=== PATIENT | female | born 1975 | race Caucasian/White ===

== ENCOUNTER → 2016-07-29 | Outpatient (CLI) | payer OTHER ==
[~2016-07-29] MED LIST: BUDESUS; CLRUNK PO; MTRUNK PO; PRENTAB26 PO; SNG10 PO; TYLUNK PO
--- NOTE | 2016-07-29 16:46 | MAMMOGRAPHY REPORT ---
BILATERAL FIRST EVER DIGITAL SCREENING MAMMOGRAM TOMOSYNTHESIS WITH CAD: 07/29/2016 CLINICAL HISTORY: Routine screening. Baseline exam. TECHNIQUE: Breast tomosynthesis in addition to standard 2D mammography was performed. Current study was also evaluated with a Computer Aided Detection (CAD) system. COMPARISON: No prior exams were available for comparison. BREAST COMPOSITION: The tissue of both breasts is heterogeneously dense, which may obscure small ma sses. FINDINGS: There is a possible round 4 mm mass seen within the left lateral breast, only clearly see n on the cc view. Recommend spot compression tomosynthesis views and possible breast ultrasound for further evaluation. This may represent a lymph node. The remainder of both breasts are negative, without suspicious masses, calcifications, or areas of a rchitectural distortion noted. IMPRESSION: ACR BI-RADS CATEGORY 0: INCOMPLETE EVALUATION: NEED ADDITIONAL IMAGING EVALUATION Possible left lateral breast mass, for which additional imaging evaluation is recommended. The vivian ent will be called to schedule an appointment. Approximately 10% of breast cancers are not detected with mammography. A negative mammographic repor t should not delay biopsy if a clinically suggestive mass is present. Yanelis Veloz M.D. ah/:07/29/2016 16:35:33 Portrait Studio Photographer: Mona HANCOCK(Tiesha)([place])([place]), [facility] [address] letter sent: Addl Imaging 0 BI-RADS Code: ACR BI-RADS Category 0: Incomplete Evaluation: Need Additional Imaging Evaluation
== END | disposition home or self-care (01) ==
LOC: C.MAMM 11:46
PROVIDERS: ATTEND Internal Medicine
DX: Z12.31 Encounter for screening mammogram for malignant neoplasm of breast (principal); R92.8 Other abnormal and inconclusive findings on diagnostic imaging of breast

== ENCOUNTER → 2016-08-10 | Outpatient (CLI) | payer OTHER ==
--- NOTE | 2016-08-10 15:21 | MAMMOGRAPHY REPORT ---
UNILATERAL LEFT DIGITAL DIAGNOSTIC MAMMOGRAM TOMOSYNTHESIS AND TARGETED LEFT ULTRASOUND: 08/10/2016 CLINICAL HISTORY: 41-year-old woman called back from screening mammography for a possible mass in th e lateral left breast. TECHNIQUE: Spot compression tomosynthesis left CC and MLO views were obtained. COMPARISON: Comparison is made to exam dated: 07/29/2016 mammogram - [facility]. BREAST COMPOSITION: There are scattered areas of fibroglandular density in the left breast. FINDINGS: The recently observed 3.5 mm possible mass in the lateral left breast is less conspicuous on the spot compression tomosynthesis views. However, it is thought to be identified on CC spot com pression tomosynthesis slice 21. No associated architectural distortion, spiculation or clustered m icrocalcification. Further evaluation with ultrasound was performed in the lateral left breast. Real-time high-resolution sonographic evaluation was performed in the lateral left breast. The firs t few images are mislabeled as right breast. This is actually the left breast. In the 12:30 left b reast, 3 cm from the nipple, there is an oval parallel hypoechoic solid mass versus prominent fat lo bule. There is an echogenic internal septum. No significant increased vascularity. This measures 3.2 x 1.9 x 3.5 mm, and has a benign sonographic appearance. There is an isoechoic solid mass versu s fat lobule in the 1:00 left breast, 6 cm from the nipple, measuring 3.0 x 3.4 x 3.3 mm. While son ography was being performed in the 1:00 left breast over this mass, the patient reported she had als o recently felt a lump in this area. Therefore, further characterization with ultrasound guided cor e needle biopsy is recommended. It is unclear if this mass correlates with the possible mammographi c mass but correlation with postprocedure mammograms is recommended. IMPRESSION: ACR BI-RADS CATEGORY 4: SUSPICIOUS, TARGETED ULTRASOUND ACR BI-RADS CATEGORY 4: SUSPICI OUS 1. Ultrasound-guided core needle biopsy is recommended for an indeterminate isoechoic solid mass ve rsus fat lobule measuring 3.3 mm in the 1:00 left breast, also correlating with a new palpable abnor mality pointed out by the patient. 2. Correlation with postprocedure mammograms is recommended to assess if this may correlate with th e 3.5 mm mammographic mass. 3. Pending benign pathology results, would recommend a repeat targeted ultrasound in the 12:30 left breast, 3 cm from the nipple, to reevaluate evaluate the benign-appearing solid mass versus normal fat lobule as detailed above. These results and recommendation were discussed with the patient at the time of the exam. Approximately 10% of breast cancers are not detected with mammography. A negative mammographic repor t should not delay biopsy if a clinically suggestive mass is present. Danica Garnica M.D. ay/:08/10/2016 10:49:42 Typesetting Machine Operator/Tender: Dereck HANCOCK(Tiesha)([place]), [facility] letter sent: Abnormal 4/5 BI-RADS Code: ACR BI-RADS Category 4: Suspicious Ultrasound BI-RADS: ACR BI-RADS Category 4: Suspic ious
== END | disposition home or self-care (01) ==
LOC: C.MAMM 09:16
PROVIDERS: ATTEND Internal Medicine
DX: R92.8 Other abnormal and inconclusive findings on diagnostic imaging of breast (principal)

== ENCOUNTER → 2016-08-20 | Outpatient (CLI) | payer OTHER ==
--- NOTE | 2016-08-20 09:40 | Discharge Instructions ---
Discharge Instructions Procedure Procedure Date: Aug 20, 2016. Reason for visit: Left Mass. Discharge Discharge Date: Aug 20, 2016. Discharge Diagnosis: post left breast ultrasound guided core biopsy Instructions Activity Recommendations: Additional Limitations (see below) Return to School/Work: no limitations Recommended Home Diet: No Limitations Provider Instructions: ACTIVITY RECOMMENDATIONS: * No lifting, pushing, pulling or exercising the affected side for three days. RETURN TO SCHOOL/WORK: * You may return to work/school after the procedure, but do not perform any strenuous activities for 24 to 48 hours. MEDICATIONS: * Tylenol (two 325 mg) every four to six hours if needed for mild pain (if not allergic to Tylenol). DIET: * Resume previous diet. SPECIAL CARE INSTRUCTIONS: * Keep biopsy site dry for 24 hours. May shower after 24 hours, but do not soak (bathe) incision. * May remove Tegaderm (plastic patch) tomorrow AFTER showering. * Leave the steri-strips on for one week. Allow the steri-strips to fall off by themselves. If not off after one week, you may remove them. You may place a Bandaid crosswise over the strips, if desired. * Apply ice 10 minutes on and 10 minutes off as needed. * Wear a bra at bedtime to sleep more comfortably for 2-3 days. * Your referring physician should have the results after approximately 5 to 7 business days. * Call for unusual bleeding, fever, drainage, etc or if you have any questions call [phone] during normal business hours or after hours call Dr Garnica, . FOLLOW UP VISIT: Follow-up with Referring Physician as scheduled. Allergies Coded Allergies: No Known Allergies (Verified Allergy, Unknown, NONE, 12/06/08) Daniel Chaparro Recommendations: Call your doctor if: * Temperature above 101 degrees * Pain not relieved by pain medicine ordered * There is increased drainage or redness from any incision * You have any unanswered questions or concerns. Your Doctors Instructions noted above were prepared by provider Danica Garnica. Patient Signature Section: Patient Instructions Signature Page Vivian Bishop Patient (or Guardian) Signature/Date: I have read and understand the instructions given to me by my caregivers. Caregiver/RN/Doctor Signature/Date: The above-named patient and/or guardian has received patient instructions on this date. + Original Patient Signature Page (only) stays with chart. Please make copy for patient.
--- NOTE | 2016-08-20 14:32 | MAMMOGRAPHY REPORT ---
THIS REPORT HAS BEEN AMENDED. ULTRASOUND GUIDED BIOPSY LEFT BREAST: 08/20/2016 CLINICAL HISTORY: Indeterminate irregular isoechoic mass versus prominent conspicuous fat lobule in the 1:00 left breast, 6 cm from the nipple, which may correlate with a subcentimeter mass in the lat eral left breast seen mammographically. Patient presents for ultrasound-guided core biopsy. COMPARISON: Comparison is made to exams dated: 08/10/2016 ultrasound, 08/10/2016 mammogram, and 07/29/19 mammogram - [facility]. PATIENT CONSENT: The procedure, risks and benefits were discussed with the patient and informed writ ten consent was obtained. Specific risks to this procedure include: bleeding, infection, puncture of adjacent structure, nontarget biopsy, sampling error, metal allergy and medication reaction. PROCEDURE DESCRIPTION: A time out was performed and the left breast was agreed as the site of biopsy . The skin was prepped and draped in the usual sterile fashion. The isoechoic angular mass in the 1: 00 left breast was chosen as the target for biopsy. Subcutaneous and intraparenchymal 1% buffered li docaine without epinephrine was administered as local anesthesia, and after administration of local anesthesia the isoechoic area became increased in echogenicity, similar to the adjacent fat lobules. A skin incision was made. Through the incision, 2 samples were taken with a 14 gauge Achieve biops y device. A metallic marker was placed at the biopsy site. Hemostasis was achieved after manual comp ression. The patient tolerated the procedure well and there was no immediate complication. She left the department in satisfactory condition. The samples were sent to pathology in an appropriately l abeled container. Postprocedure left CC and ML tomosynthesis images were obtained. There is a new ribbon-shaped metal lic biopsy marker and no significant hematoma in the 1:00 posterior left breast. The previously obs erved 4 mm nodular asymmetry is no longer identified in the ribbon-shaped metallic biopsy marker is in the vicinity of its previous location. Nevertheless, a short interval follow-up diagnostic left mammogram and possible repeat ultrasound is 20 to ensure stability in 6 months, pending benign patho logy results. IMPRESSION: ULTRASOUND GUIDED BIOPSY Status post ultrasound guided core biopsy of an indeterminate isoechoic mass versus prominent fat lo bule in the 1:00 left breast, with biopsy marker placed at the site. Pending benign pathology results, follow-up left diagnostic mammograms including tomosynthesis image s and possible repeat ultrasound is recommended to ensure stability in 6 months given that the 4 mm nodular asymmetry is less conspicuous on the current images. The patient will receive notification of the biopsy results from her referring physician. Danica Garnica M.D. ay/:08/20/2016 09:33:38 Historical Records Administrator: Jackie LIND)([place]), [facility] AMENDMENT: 09/03/2016 Danica Garnica M.D. Pathology results from the ultrasound-guided core needle biopsy of an indeterminate isoechoic mass v ersus fat lobule in the 1:00 left breast yielded benign breast tissue. Negative for DCIS and invasi ve carcinoma. The pathology results are concordant with the imaging appearance. As per prior diagnostic mammogram and ultrasound report recommendations, a short interval follow-up left mammogram and targeted ultrasound in the 12:00 axis is recommended to ensure stability of other probably benign findings in 6 months.
--- NOTE | 2016-08-20 14:32 | MAMMOGRAPHY REPORT ---
UNILATERAL LEFT DIGITAL DIAGNOSTIC MAMMOGRAM TOMOSYNTHESIS: 08/20/2016 CLINICAL HISTORY: Isoechoic mass versus conspicuous fat lobule in the 1:00 left breast, 6 cm from th e nipple. Patient presents for ultrasound-guided core needle biopsy. Please refer to the report from left breast ultrasound guided core biopsy performed at the same time for full detail. IMPRESSION: POST PROCEDURE IMAGING FOR MARKER PLACEMENT Please refer to the report from left breast ultrasound guided core biopsy performed at the same time for full detail. Approximately 10% of breast cancers are not detected with mammography. A negative mammographic repor t should not delay biopsy if a clinically suggestive mass is present. Danica Garnica M.D. ay/:08/20/2016 08:53:01 Senior Construction Estimator: Jackie HANCOCK(Tiesha)(M), [facility] BI-RADS Code: Post Procedure Imaging For Marker Placement
== END | disposition home or self-care (01) ==
LOC: C.MAMM 08:12
PROVIDERS: ATTEND Internal Medicine
DX: N63 Unspecified lump in breast (principal)

== ENCOUNTER → 2017-03-10 | Outpatient (CLI) | payer OTHER ==
--- NOTE | 2017-03-10 13:54 | MAMMOGRAPHY REPORT ---
UNILATERAL LEFT DIGITAL DIAGNOSTIC MAMMOGRAM TOMOSYNTHESIS WITH CAD AND TARGETED LEFT ULTRASOUND: 03/10/2017 CLINICAL HISTORY: History of benign ultrasound-guided biopsy of a left 1:00 breast mass August 2016 wh ich yielded benign pathology. The patient presents for short interval follow-up of a left 12:[address] mass seen on the prior diagnostic workup. The patient reports no current complaints. TECHNIQUE: Breast tomosynthesis in addition to standard 2D mammography was performed. Current study was also evaluated with a Computer Aided Detection (CAD) system. Left CC and MLO 2-D and tomosynthes is images were obtained. COMPARISON: Comparison is made to exams dated: 08/20/2016 mammogram, 08/20/2016 ultrasound biopsy, 08/10 ultrasound, 08/10/2016 mammogram, and 07/29/2016 mammogram - [facility]. BREAST COMPOSITION: There are scattered areas of fibroglandular density in the left breast. FINDINGS: A biopsy marker clip is noted in the left upper outer quadrant from prior benign ultrasoun d-guided core needle biopsy. There are no suspicious masses, calcifications, or areas of architectur al distortion noted within the left breast. There has been no significant interval change compared t o prior exams. Targeted ultrasound was performed of the area of the previously seen left breast mass. In the left b reast at 12:30, 3 cm from the nipple, there is a benign-appearing oval hypoechoic circumscribed 3 x 3 mm mass which is stable in size and appearance compared to the August 2016 exam. Given the benign mo rphology and stability, the mass is considered benign and may represent a normal fat lobule. IMPRESSION: ACR BI-RADS CATEGORY 2: BENIGN, TARGETED ULTRASOUND ACR BI-RADS CATEGORY 2: BENIGN Benign-appearing circumscribed 3 mm mass in the left breast at 12:30 is stable dating back to the Aug exam, and is considered benign given the stability and benign morphology. There is no mammog raphic or targeted sonographic evidence of malignancy. Return to annual mammogram screening schedule is recommended, due July 2017. The patient has been verbally notified of the results. Approximately 10% of breast cancers are not detected with mammography. A negative mammographic report should not delay biopsy if a clinically suggestive mass is present. Yanelis Veloz M.D. /:03/10/2017 09:39:31 [employer] Gas Field Processing Supervisor: Jerri Hurt RT(R)(M), [facility] letter sent: Normal 1/2 BI-RADS Code: ACR BI-RADS Category 2: Benign Ultrasound BI-RADS: ACR BI-RADS Category 2: Benign
== END | disposition home or self-care (01) ==
LOC: C.MAMM 08:47
PROVIDERS: ATTEND Internal Medicine
DX: N63.0 Unspecified lump in unspecified breast (principal)

== ENCOUNTER → 2017-09-27 | Outpatient (CLI) | payer OTHER ==
--- NOTE | 2017-09-27 14:24 | MAMMOGRAPHY REPORT ---
BILATERAL DIGITAL SCREENING MAMMOGRAM TOMOSYNTHESIS WITH CAD: 09/27/2017 CLINICAL HISTORY: Routine screening. Patient has no complaints. TECHNIQUE: Breast tomosynthesis in addition to standard 2D mammography was performed. Current study was also evaluated with a Computer Aided Detection (CAD) system. COMPARISON: Comparison is made to exams dated: 03/10/2017 ultrasound, 03/10/2017 mammogram, 08/20/2016 mammogram, 08/10/2016 ultrasound, 08/10/2016 mammogram, and 07/29/2016 mammogram - [facility]. BREAST COMPOSITION: The tissue of both breasts is heterogeneously dense, which may obscure small mas ses. FINDINGS: There is a stable metallic biopsy marker clip in the upper outer posterior left breast. No new suspicious mass, architectural distortion or cluster of microcalcifications is seen. IMPRESSION: ACR BI-RADS CATEGORY 1: NEGATIVE There is no mammographic evidence of malignancy. A 1 year screening mammogram is recommended. The pa tient will receive written notification of the results. Approximately 10% of breast cancers are not detected with mammography. A negative mammographic report should not delay biopsy if a clinically suggestive mass is present. Danica Garnica M.D. ay/:09/27/2017 12:27:30 Buckle Assembler: Jackie HANCOCK(Tiesha)(M), [facility] letter sent: Normal 1/2 BI-RADS Code: ACR BI-RADS Category 1: Negative
== END | disposition home or self-care (01) ==
LOC: C.MAMM 10:01
PROVIDERS: ATTEND Internal Medicine
DX: Z12.31 Encounter for screening mammogram for malignant neoplasm of breast (principal)